=== PATIENT | female | born 1975 | race Caucasian/White ===

== ENCOUNTER → 2019-05-08 | Outpatient (CLI) | payer BC | END | disposition home or self-care (01) | LOC: RAD 08:38 | PROVIDERS: ATTEND Internal Medicine | DX: R06.02 Shortness of breath (principal); I10 Essential (primary) hypertension; R00.2 Palpitations; Z88.5 Allergy status to narcotic agent | CPT/HCPCS: 71045; 78582; A9540; A9558 ==

== ENCOUNTER 2019-06-12 10:02 | Outpatient (CLI) | payer BC | END 2019-06-12 23:59 | disposition home or self-care (01) | LOC: CARD 10:02 | PROVIDERS: ATTEND Internal Medicine | DX: R06.02 Shortness of breath (principal) | CPT/HCPCS: 94621 ==

== ENCOUNTER 2019-07-14 07:19 | Outpatient (CLI) | payer BC | END 2019-07-14 23:59 | disposition home or self-care (01) | LOC: CVU 07:19 | PROVIDERS: ATTEND Internal Medicine Cardiovascular Disease | DX: I08.8 Other rheumatic multiple valve diseases (principal); M06.9 Rheumatoid arthritis, unspecified | CPT/HCPCS: 93306 ==